=== PATIENT | female | born 1955 | race Caucasian/White ===

== ENCOUNTER 2021-11-30 12:52 | Outpatient (CLI) | payer OTHER, SELFPAY ==
--- OUTSIDE RECORDS SUMMARY | 2021-10-27 09:40 | XMS_ITS | Continuity of Care Document ---
:1955 Author Care Team Providers Name Role Phone MD Sol Wallace Admitting Physician MD Sera Garcia Primary Care Physician Chief Complaint and Reason for Visit Chief Complaint Minor Trauma/Fall Reason for Visit [id number] Allergies, Adverse Reactions, Alerts No known allergies Social History Smoking Status Status Start Date End Date Date of Observat ion Never smoked tobacco September 30 8:30pm (finding) Observation Status Observation Response Date of Response December 31, 2017 1: 32pm Has 5 children December 31, 2017 1: 32pm Additional Data Assigned Sex Female Problems Active Problems Medical Problem Onset Date Status Varicose vein of leg Active Need for Tdap vaccination Active Need for pneumococcal vaccination Active Left rib fracture Active Left elbow contusion Active Abrasion of left elbow Active History of appendectomy Active History of back surgery Active labrum hip repaired Active History of tubal ligation Active History of reversal of tubal Active ligation Medications Medication Status Dose Units Route Directions Qty Days Start End Ins tructions Date Date Cholecalcifer Active 5000 UNIT PO Daily ol (Vitamin D) 5,000 Unit CAP Multivitamins Active 1 TAB PO Daily 100 (Multivitamin /Minerals) TAB Cetirizine Discontin 10 MG PO Daily as Novemb Hcl (Zyrtec) ued needed er 10 Mg TAB 2014 2:02pm Ciprofloxacin Discontin 500 MG PO Twice A Day 17 August No vemb Hcl (Cipro) ued 1st, er 500 Mg TAB 2012 08, 11:33pm 2012 1:29pm Ketorolac Discontin 10 MG PO Three Times 23 August Novemb Tromethamine ued A Day as 1st, er needed 2012 08, 11:24pm 2012 1:29pm Multiple Discontin 1 EA PO Daily Decemb Vitamin ued er (Multi-Vitami 17th, n) TAB 2009 1:27pm Ondansetron Discontin 4 MG SL Q6h Prn 13 August Novemb a s needed for Hcl (Zofran ued 1st, er nausea Odt) 4 Mg TAB 2012 4th, 11:24pm 2012 1:29pm Ondansetron Discontin 4 MG PO Every 4-6 May Hcl ued Hours as , , (Ondansetron needed 2009 2009 Odt) 4 Mg TAB 6:24pm 9:12pm Oxycodone/Rashaun Discontin 1-2 TAB PO Q4-6H Prn 02 September Nove emelyn taminophen ued 1st, er 2012 08, 11:24pm 2012 1:29pm Immunizations Immunization Event Not Given 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[employer] Lot Number Vac cine Date Reason Number Informatio n Statement (VIS) Deta il Tdap October 04 (adolescent/adul 15, t) 2008 Procedures Procedure Date Performed Status Computed tomography of head September 30, [address] of chest, abdomen, and September 30, 2021 completed pelvis without contrast X-ray of left elbow, three or September 30, 2021 completed more views Relevant Diagnostic Tests and/or Laboratory Data Laboratory Results Test Date/Time Result Interpretation Reference Result Perfo rming Range Comment Site White Blood September 30, 5.46 5.00-10.00 [facility] Count 2021 8:32pm [address] [facility] [address] Red Blood September 30, 4.37 3.90-5.03 [facility] Count 2021 8:32pm [address] [facility] [address] Hemoglobin September 30, 12.7 12.0-15.5 [facility] 2021 8:32pm [address] [facility] [address] Hematocrit September 30, 39.1 34.9-44.5 [facility] 2021 8:32pm [address] [place] [address] Mean September 30, 90 82-98 [facility] Corpuscular 2021 8:32pm 1999 [facility] [place] [address] Mean September 30, 29 27-34 [facility] Corpuscular 2021 8:32pm [address] [facility] Hemoglobin [facility] [address] Mean September 30, 33 32-36 [facility] Corpuscular 2021 8:32pm [address] [facility] Hemoglobin [facility] [place] [address] Concent Platelet Count September 30, 255 150-450 [facility] 2021 8:32pm [address] [place] [address] RDW September 30, 11.9 11.5-15.3 [facility] Coefficient of 2021 8:32pm 200 0 [place] [address] Neutrophils September 30, 57.3 50.0-70.0 [facility] (%) (Auto) 2021 8:32pm 1999 [place] [address] Lymphocytes September 30, 32.1 25.0-45.0 [facility] (%) (Auto) 2021 8:32pm [address] [facility] [address] Monocytes (%) September 30, 7.7 0.00-11.0 [facility] Lab (Auto) 2021 8:32pm [address] [facility] [address] Eosinophils September 30, 1.5 0.0-7.0 [facility] Lab (%) (Auto) 2021 8:32pm [address] [facility] [address] Basophils (%) September 30, 0.5 0.0-3.0 [facility] Lab (Auto) 2021 8:32pm [address] [place] [address] Immature September 30, 0.9 [facility] Granulocyte % 2021 8:32pm 1999 [facility] [place] [address] Neutrophils # September 30, 3.13 1.70-7.00 [facility] Lab (Auto) 2021 8:32pm [address] [facility] [address] Lymphocytes # September 30, 1.75 0.90-2.90 [facility] Lab (Auto) 2021 8:32pm [address] [facility] [address] Monocytes # September 30, 0.42 0.30-0.90 [facility] Lab (Auto) 2021 8:32pm [address] [facility] [address] Eosinophils # September 30, 0.08 0.00-0.50 [facility] Lab (Auto) 2021 8:32pm [address] [facility] [address] Basophils # September 30, 0.03 0.00-0.20 [facility] Lab (Auto) 2021 8:32pm [address] [facility] [address] Immature September 30, 0.05 [facility] Granulocyte # 2021 8:32pm 1999 [facility] (Auto) [facility] [address] Random Glucose September 30, 119 60-115 [facility] 2021 8:32pm [address] [facility] [address] Blood Urea September 30, 19 7-30 [facility] Nitrogen 2021 8:32pm [address] [facility] [address] Creatinine September 30, 0.9 0.5-1.5 [facility] 2021 8:32pm [address] [facility] [address] Estimated September 30, 57.14[address] [facility] Creatinine 2021 8:32pm 1999 [facility] Clearance [facility] [address] Sodium Level September 30, 138 135-149 [facility] 2021 8:32pm [address] [facility] [address] Potassium September 30, 3.9 3.6-5.1 [facility] Level 2021 8:32pm [address] [facility] [address] Chloride Level September 30, 100 96-114 [facility] 2021 8:32pm [address] [facility] [address] Carbon Dioxide September 30, 31 20-32 [facility] Level 2021 8:32pm [address] [facility] [address] Calcium Level September 30, 9.1 8.4-10.6 [facility] 2021 8:32pm [address] [facility] [address] Diagnostic Imaging Reports Report Dictated Date/Time Dictated By Status September 30, 2021 8:59pm Aleksandr Burnett MD [facility] [address] [place] [address] ~DEPARTMENT OF DI AGNOSTIC IMAGING~ Patient: HERBIE TAMAYO MR #: [id number] : 1955 Age: 66 Sex: F Ordering MD: Damon Wallace MD R m/Bed: Loc: ED Report #: [id number] RAD/EL BOW, LEFT Min 3V Date: 09/30/21 Signed For Patients: As a result of the entury Cures Act, medical imaging exams and procedure reports are release d immediately into your electronic medical record. You may view this repo rt before your referring provider. If you have questions, please contact y our health care provider. INDICATION: Trauma. Fall. Left elbow pain. TECHNIQUE: Three views of the left elbow. FINDINGS: No fracture or dislocation the left elb ow. No erosion or effusion. IMPRESSION: Negative three-view left elbow. Dictated by Aleksandr Burnett MD @ 09/30/2021 10:07:33 PM (Electronically Signed) Dictated By: Aleksandr Burnett MD Signed By: Aleksandr Burnett MD Report Dictated Date/Time Dictated By Status September 30, 2021 8:59pm [place] [address] ~DEPARTMENT OF DI AGNOSTIC IMAGING~ Patient: HERBIE TAMAYO MR #: [id number] : 1955 Age: 66 Sex: F Ordering MD: Damon Wallace MD m/Bed: Loc: ED Report #: [id number] CT/HEA D W/O CONTRAST Date: 09/30/21 Signed For Patients: As a result of the entury Cures Act, medical imaging exams and procedure reports are release d immediately into your electronic medical record. You may view this repo rt before your referring provider. If you have questions, please contact y our health care provider. INDICATION: Status post fall. COMPARISON: None available. TECHNIQUE: CT examination of the head was performe d with 3 mm thick axial and 2 mm thick coronal and sagittal sections wit hout intravenous contrast. Images were obtained from the vertex of the sk ull through the skull base, and I examined the images with the brain and bone windows. Please note that all CT scans at this [facility] use dose modulation, iterative reconstruction, and/or weight -based dosing when appropriate to reduce radiation dose to as low as reas onably achievable. FINDINGS: : The brain is normal in appearance for t he patient`s age on today`s study, with no sign of mass lesion, mass effec t, hemorrhage, or edema. The ventricles and sulci are normal in appearance for the patient`s age. The visualized portions of the orbits a re normal in appearance. The visualized portions of the paranasa l sinuses and mastoids are clear. The osseous structures are normal in th eir appearance with no sign of abnormality in the skull base or calvar ium. IMPRESSION: No sign of closed head injury. Normal noncontrast CT of the head for t he patient`s age. Please note that all CT scans at this [facility] use dose modulation, iterative reconstruction, and/or weight -based dosing when appropriate to reduce radiation dose to as low as reas onably achievable. Dictated by Law Vallecillo MD @ 09/30/2021 10:09:56 PM (Electronically Signed) Dictated By: Law Vallecillo MD Signed By: ____ Law Vallecillo MD Report Dictated Date/Time Dictated By Status September 30, 2021 9:00pm Chuck Thompson MD complet [address]~ Patient: HERBIE TAMAYO MR #: [id number] : 1955 Age: 66 Sex: F Ordering MD: Damon Wallace MD R m/Bed: Loc: ED Report #: [id number] CT/ZULEIMA ST,ABDOMEN,& PELVIS WO CONT Date: 09/30/21 Signed For Patients: As a result of the entury Cures Act, medical imaging exams and procedure reports are release d immediately into your electronic medical record. You may view this repo rt before your referring provider. If you have questions, please contact y our health care provider. INDICATION : Fall. Left-sided pain. TECHNIQUE : CT Scan of the chest, abdomen and pelvi s. No IV contrast (World wide contrast pee rta). COMPARISON : 08/04/2012 FINDINGS: Chest: Lungs are clear. No pneumothorax. The mediastinal hematoma. Normal heart size with no pericardial f luid. Coronary artery calcification LCX LAD. Abdomen: Intact liver spleen pancreas adrenal gl ands and kidneys. No hydronephrosis. No perinephric hemat socrates. Tiny peripheral sub cm low dense focus in the liver right lobe image 93 no change previous. The right kidney is slightly ectopic po sition inferior in the right abdomen. GI tract is normal caliber. Aorta: Plaque formation normal caliber. Lymph nodes: No pathologic enlargement. Intraperitoneal free fluid: Absent. Pelvis: Unremarkable uterus, and urinar y bladder no free fluid or enlarged lymph nodes. Skeletal: No visualized/displaced fractures. Incidental sacral perineural cysts. Scoliosis lumbar spine convex to the ri ght. IMPRESSION: 1. No signs of significant injury chest abdomen or pelvis. 2. Coronary artery calcification. 3. Stable incidental low-dense liver le sid likely benign given long-term stability. 4. No other significant change from darrell or exam. Please note that all CT scans at this [facility] use dose modulation, iterative reconstruction, and/or weight -based dosing when appropriate to reduce radiation dose to as low as reas onably achievable. Dictated by Chuck Thompson MD @ 09/30/2021 10:20:29 PM (Electronically Signed) Dictated By: CHUCK THOMPSON MD Signed By: CHUCK THOMPSON MD Advance Directives Advance Directive Response Recorded Date/Time Does Pt have Health Care Yes April 04, 2015 8:16am Directive? Has patient completed a Yes September 30, 2021 8 :30pm Health Care Directive? Insurance Providers Guarantor Herbie Tamayo Address [address] [facility] [address] Contact Info. Home Phone: Payer Policy Id Coverage Subscriber's Subscriber Effective Expira tion Id Name Id Date Date Medica [id number] Herbie Tamayo J Programs Encounters Encounter Location(s) Arrival/Admit Date Discharge/Depart Date Provider(s) Departed [place] September 30, 2021 September 30, 2021 [facility] 8:42pm 10:53pm T Plan of Treatment Future Tests Future scheduled test information is unavailable Pending Tests Pending diagnostic test information is unavailable Future Visits Future appointment information is unavailable Referrals to Other Providers Reason for Referral Start Provider Provider Contact Provider Address Referral Date Information Reny Garcia Work Phone: [facility] Sera GUEVARA [phone] [facility] [phone] Work Phone: [facility] [address] [facility] [phone] Future Procedures Procedure Name Scheduled Date TAWANNA Bilat Mammo Scrn RAD DEXA - Bone Density Future Medications Future medication information is unavailable Patient Instructions Rib Fracture (ED) Contusion in Adults (ED)
--- NOTE | 2021-11-30 13:00 | CRLHL7_ITS ---
For Patients: As a result of the Cures Act, medical imaging exams and procedure reports are released immediately into your electronic medical record. You may view this report before your referring provider. If you have questions, please contact your health care provider. DXA BONE MINERAL DENSITY STUDY, 11/30/2021 Current height (inches): 67.0 Weight (lbs.): 130.0 Menopause age: 54 Ethnicity: White 1. Have you had a previous hip or vertebral fracture? No. 2. Have you had any fractures during your adult life which did not result from significant trauma (e.g., auto accident)? No. 3. Did either of your parents have a hip fracture? Yes. 4. Do you smoke? No. 5. Have you ever taken Glucocorticoids? No. 6. Do you have rheumatoid arthritis? No. 7. Do you have secondary osteoporosis? No. 8. Do you drink 3 or more alcoholic drinks per day? No. 9. Are you being treated for osteoporosis? No. 10. Have you ever taken any of the following medications: Actonel, Evista, Fosamax, Miacalcin, Reclast, Boniva, Forteo, HRT (i.e., estrogen/hormone therapy), Protelos, Prolia, Vitamin D, Calcium, other ??? please specify. ANSWER: Yes; vitamin D and calcium. 11. Do you have any of the following medical conditions: Anorexia or bulimia, asthma or emphysema, end stage renal disease, hyperparathyroidism, any seizure disorders, cancer, inflammatory bowel diseases, hysterectomy, other ??? please specify. ANSWER: No. 12. What was your maximum height (inches)? 67. 13. Do you perform weight bearing exercise regularly? Yes. 14. Do you regularly consume dairy products? Yes. 15. Do you drink caffeinated beverages? No. If female: 16. At what age did your period start? 15. 17. Are you premenopausal? No. 18. How many full-term pregnancies have you had? 4. 19. Have you ever missed your period for more than 6 months in a row (not including or menopause)? No. TECHNIQUE: Bone mineral density study was performed using the [employer]. FINDINGS: The results of the study expressed as bone mineral density (BMD) are as follows: Lumbar Spine L1 to L4: BMD: 0.779 g/cm2. T-score: -2.4. Z-score: -0.7. Neck Left: BMD: 0.612 g/cm2. T-score: -2.1. Z-score: -0.6. Right: BMD: 0.618 g/cm2. T-score: -2.1. Z-score: -0.6. Total Left: BMD: 0.770 g/cm2. T-score: -1.4. Z-score: -0.2. Right: BMD: 0.683 g/cm2. T-score: -2.1. Z-score: -0.9. IMPRESSION: Osteopenia. Scoliosis. FRAX 10-year Fracture Risk Major Osteoporotic Fracture: 18% Hip Fracture: 1.7% Reported Risk Factors: [place] () Neck BMD = 0.612, BMI = 20.4, parental fracture DARA VALLE M.D. Diagnostic/Breast Radiologist [email or web address] Transcribed: 11:[address]/Dictated by: Dara Valle MD @ 12/01/2021 9:09:00 AM (Electronically Signed)
--- NOTE | 2021-11-30 13:40 | CRLHL7_ITS ---
For Patients: As a result of the Century Cures Act, medical imaging exams and procedure reports are released immediately into your electronic medical record. You may view this report before your referring provider. If you have questions, please contact your health care provider. BILATERAL SCREENING MAMMOGRAM WITH COMPUTER-AIDED DETECTION TECHNIQUE: CC and MLO views were obtained. These mammographic images have been obtained using full-field digital technique. These mammographic images were interpreted with the benefit of computer-aided detection. COMPARISON FILM: 08/19/18, 02/27/16, 02/02/15 FINDINGS: The breasts are heterogeneously dense, which may obscure small masses IMPRESSION: There is no radiographic evidence for malignancy. ASSESSMENT: BI-RADS Category 1: Negative RECOMMENDATION: Routine screening mammogram in 1 year. A lay language report of this examination will be provided to the patient. Keaton Colorado M.D. Diagnostic Radiologist [email or web address] MIRA/Dictated by: Keaton Colorado MD @ 12/05/2021 10:00:00 AM (Electronically Signed)
== END 2021-11-30 12:53 | disposition home or self-care (01) ==
LOC: RAD 12:55
PROVIDERS: Visit Provider Family Medicine
DX: Z12.31 Encounter for screening mammogram for malignant neoplasm of breast (principal); Z13.820 Encounter for screening for osteoporosis
CPT/HCPCS: 77063; 77067; 77080

== ENCOUNTER 2022-12-26 07:32 | Outpatient (CLI) | payer OTHER, SELFPAY | END 2022-12-26 07:33 | disposition home or self-care (01) | LOC: NFLDREF 12-29 07:58 | PROVIDERS: PCP Family Medicine; Referring Provider Family Medicine; Visit Provider Family Medicine | DX: Z00.00 Encounter for general adult medical examination without abnormal findings (principal); M85.80 Other specified disorders of bone density and structure, unspecified site; I10 Essential (primary) hypertension; Z13.6 Encounter for screening for cardiovascular disorders; Z78.0 Asymptomatic menopausal state | CPT/HCPCS: 80053; 80061; 82306; 83735 ==

== ENCOUNTER 2023-11-21 08:28 | Outpatient (CLI) | payer OTHER, SELFPAY ==
--- NOTE | 2023-11-21 09:42 | W.ANESCHARGE ---
Anesthesia Charges Start Date/Time Anesthesia Start Date: 11/21/23 Anesthesia Start Time: 09:11 Stop Date/Time Anesthesia Stop Date: 11/21/23 Anesthesia Stop Time: 09:50
--- NOTE | 2023-11-21 09:52 | W.ANESCHARGE ---
Anesthesia Charges Start Date/Time Anesthesia Start Date: 11/21/23 Anesthesia Start Time: 09:11 Stop Date/Time Anesthesia Stop Date: 11/21/23 Anesthesia Stop Time: 09:50
== END 2023-11-21 08:29 | disposition home or self-care (01) ==
LOC: OP CLINIC 08:29
PROVIDERS: PCP Family Medicine; Visit Provider Surgery
DX: Z12.11 Encounter for screening for malignant neoplasm of colon (principal); K63.5 Polyp of colon; Z83.719 Family history of colon polyps, unspecified
CPT/HCPCS: 00811; 45385; 88305; J2704

== ENCOUNTER 2024-02-28 08:32 | Outpatient (CLI) | payer OTHER, SELFPAY | END 2024-02-28 08:33 | disposition home or self-care (01) | PROVIDERS: PCP Registered Nurse; Visit Provider Registered Nurse | DX: Z00.00 Encounter for general adult medical examination without abnormal findings (principal); Z13.6 Encounter for screening for cardiovascular disorders; Z13.820 Encounter for screening for osteoporosis | CPT/HCPCS: 80053; 80061; 82306 ==

== ENCOUNTER 2024-03-13 10:50 | Outpatient (CLI) | payer OTHER, SELFPAY ==
--- NOTE | 2024-03-13 10:45 | CRLHL7_ITS ---
For Patients: As a result of the Century Cures Act, medical imaging exams and procedure reports are released immediately into your electronic medical record. You may view this report before your referring provider. If you have questions, please contact your health care provider. BILATERAL SCREENING MAMMOGRAM WITH COMPUTER-AIDED DETECTION AND TOMOSYNTHESIS TECHNIQUE: CC and MLO views were obtained. These mammographic images have been obtained using full-field digital technique. These mammographic images were interpreted with the benefit of computer-aided detection. Breast tomosynthesis was used in this interpretation. COMPARISON FILM: 11/30/21, 08/19/18, 02/27/16. FINDINGS: The breasts are heterogeneously dense, which may obscure small masses. IMPRESSION: There is no radiographic evidence for malignancy. ASSESSMENT: BI-RADS Category 1: Negative RECOMMENDATION: Routine screening mammogram in 1 year. A lay language report of this examination will be provided to the patient. KEATON ANDREWS M.D. Diagnostic Radiologist [email or web address] Transcribed: 03/19/2024, 3:[address]/Dictated by: Keaton Andrews MD @ 03/19/2024 11:24:00 AM (Electronically Signed)
== END 2024-03-13 10:51 | disposition home or self-care (01) ==
LOC: MAMMO 10:51
PROVIDERS: PCP Registered Nurse; Visit Provider Registered Nurse
DX: Z12.31 Encounter for screening mammogram for malignant neoplasm of breast (principal); R92.333 Mammographic heterogeneous density, bilateral breasts
CPT/HCPCS: 77063; 77067

== ENCOUNTER 2025-03-04 08:22 | Outpatient (CLI) | payer OTHER, SELFPAY | END 2025-03-04 08:23 | disposition home or self-care (01) | PROVIDERS: PCP Nurse Practitioner Family; Visit Provider Nurse Practitioner Family | DX: I10 Essential (primary) hypertension (principal); Z13.6 Encounter for screening for cardiovascular disorders; Z13.0 Encounter for screening for diseases of the blood and blood-forming organs and certain disorders involving the immune mechanism | CPT/HCPCS: 80053; 80061; 82728 ==